=== PATIENT | female | born 1945 | race Caucasian/White ===

== ENCOUNTER 2016-10-07 07:00 | Day surgery (SDC) | payer OTHER ==
[2016-10-07] VITALS (9 sets, daily range): BP systolic 122–146; BP diastolic 70–88; PULSE 80–95; RESP 16–20; TEMP 98.2–98.4; O2SAT 92–96
[~2016-10-07] VITALS: Ht 162.6 cm; Wt 70.5 kg
[2016-10-07] MEDS ORDERED: DICL75TA PO (07:19)
[2016-10-07] MEDS ORDERED: HYDR12.57 PO (07:19)
[2016-10-07] MEDS ORDERED: TEMA30CA PO (07:19)
[2016-10-07] MEDS ORDERED: SYNT88TA PO (07:19)
[2016-10-07] MEDS ORDERED: OMEP40CA2 PO (07:19)
[2016-10-07] MEDS ORDERED: SODIUM CHLOR 0.9% 1000 ML IV SCH (07:30)
[2016-10-07] MEDS ORDERED: SODIUM CHLORIDE 0.9% FLUSH 10 ML FLUSH IV FLUSH PRN ×2 (07:30)
[2016-10-07] MEDS ORDERED: LIDOCAINE 1%/EPINEPHrine 1:100,000 SOLN 20 ML VIAL ONE (07:53)
[2016-10-07] MEDS ORDERED: MIDAZOLAM HCL 5 MG/5 ML VIAL ONE (08:11)
[2016-10-07] MEDS ORDERED: fentaNYL CITRATE 250 MCG/5 ML AMP ONE (08:11)
[2016-10-07] MEDS ORDERED: HYDROmorphone HCL 2 MG TAB PO PRN (11:15)
--- NOTE | 2016-10-07 11:41 | PD.RAD ---
Post CT Procedure Prog Note Pre Procedure Diagnosis: (1) Cancer Post Procedure Diagnosis: (1) Cancer Procedure Date: Oct 07, 2016 Supervising Radiologist: Salvatore Borjas Proceduralist/Assist: RT Sofia(R)(CT) Anesthesia: Conscious Sedation Plan of Activity Patient to Unit: ROPU Patient Condition: Good See PACS Report for procedural detail/treatment Biopsy Imaging Guidance: CT Biopsy Procedure: Liver Specimen: Core Biopsy Salvatore Borjas MD Oct 07, 2016 11:40
--- NOTE | 2016-10-07 12:04 | RADRPT ---
EXAM DATE/TIME: 10/07/2016 08:22 [facility] COMPARISON: No previous studies available for comparison.8 INDICATIONS : Liver lesions. SEDATION TIME: 15 minutes BIOPSY SITE: Right Liver MEDICATION(S): 1.) 1.5 mg midazolam (Versed) IV 2.) 100 mcg fentanyl (Sublimaze) IV DEVICE(S): 1.) 18 gauge Temno core biopsy needle MEDICAL HISTORY : Hypertension. Gastroesophageal reflux disease. Pancreatic mass. SURGICAL HISTORY : None. ENCOUNTER: Initial ACUITY: 1 day PAIN SCORE: 0/10 LOCATION: Right liver A total of three core specimen(s) were obtained and sent to the laboratory for pathologic evaluation. PROCEDURE: 1. CT guided liver biopsy. 2. Conscious sedation with continuous EKG and oximetry monitoring. 3. EKG and oximetry remained stable throughout the procedure. Prior to the procedure informed consent was obtained. Any appropriate prior imaging studies were rev iewed. Using automated exposure control and adjustment of the mA and/or kV according to patient size, radiat ion dose was kept as low as reasonably achievable to obtain optimal diagnostic quality images. The site was prepped in a sterile fashion. Full sterile technique was used, including cap, mask, yumiko rile gloves and gown and a large sterile sheet. Hand hygiene and 2% chlorhexidine and/or betadine/al cohol prep was utilized per protocol for cutaneous antisepsis. The skin and subcutaneous tissues wer e infiltrated with local anesthetic solution. With CT guidance the previously identified target was localized. Biopsy was performed using the presc ribed needle as above. Adequate hemostasis was obtained with compression at the puncture site. Follow-up CT scan reveals no hemorrhage. The patient tolerated the procedure well and there were no complications. The patient was returned to the Radiology Outpatient Unit in stable condition. CONCLUSION: Uncomplicated CT guided biopsy. Salvatore Borjas MD on October 07, 2016 at 12:02 Board Certified Radiologist. This report was verified electronically.
== END 2016-10-07 13:15 | disposition home or self-care (01) ==
LOC: EDSEX → HRIP 07:00 → HRAD 07:00
PROVIDERS: ATTEND Surgery
DX: C78.7 Secondary malignant neoplasm of liver and intrahepatic bile duct (principal); K21.9 Gastro-esophageal reflux disease without esophagitis; I10 Essential (primary) hypertension
CPT/HCPCS: 47000; 77012; 88307; 88341; 88342; J2250; J3010; J7030

== ENCOUNTER → 2016-10-14 | Day surgery (SDC) | payer OTHER ==
[~2016-10-14] MED LIST: ACETAMINOPHEN/HYDROcodone 325 MG/5 MG TAB ONE; BUPIVACAINE/EPINEPHRINE 0.5% PF 30 ML VIAL ONE; DICL75TA PO; HEPARIN SODIUM - IV 10,000 UNITS/10 ML VIAL ONE; HYDR12.57 PO; LACT10SO PO; LACTATED RINGER'S 1000 ML INJ 1,000 ML ONE; LIDOCAINE 1%/EPINEPHrine 1:100,000 SOLN 20 ML VIAL ONE; MIDAZOLAM HCL 2 MG/2 ML VIAL ONE; MORP1TAB24 PO; OMEP40CA2 PO; PROPOFOL 200 MG/20 ML AMP IV ONE; REGL5TAB PO; SODIUM CHLORIDE 0.9% 20 ML VIAL ONE; SYNT88TA PO; TEMA30CA PO; XARE15TA PO; ceFAZolin INJ 1,000 MG VIAL ONE
--- NOTE | 2016-10-14 12:55 | TN ---
cc: FERNIE POWERS M.D., RUBY ANNE E. M.D. DATE OF SURGERY 10/14/2016 PREOPERATIVE DIAGNOSIS Metastatic pancreatic cancer. POSTOPERATIVE DIAGNOSIS Metastatic pancreatic cancer. PROCEDURE Placement left side [id number] under fluoroscopic guidance. ANESTHESIA TIVA SURGEON Dr. Powers INDICATIONS This is an unfortunate 71-year-old female who was found to have widely metastatic pancreatic cancer that was biopsied and confirmed. She has seen Dr. Frankel. She is considering chemotherapy. She is getting a second opinion at the [facility] next week. PROCEDURE The patient taken to the operating room, placed in the supine position. After anesthesia and time out is done, she was given preoperative antibiotics. The left shoulder and neck prepped with Betadine. We anesthetize the area with a quarter percent Marcaine solution, cannulated the subclavian vein without difficulty. The guidewire was advanced under fluoroscopic guidance so it lays in the superior vena cava. The subcutaneous pocket is then made. The catheters is cut to size at 20-1/2 cm. It is connected to the Power Port and secured into place. This was all done under fluoroscopic guidance. The deep layers were closed with 3-0 Vicryl and the skin was closed with a 4-0 Monocryl. Steri-Strips applied. Sterile bandage applied. A stat portable chest x-ray is pending at time of this dictation. MD SIGIFREDO Monteiro/FROYLAN /9:48 AM /12:49 PM
== END | disposition home or self-care (01) ==
LOC: ESDC 07:04
PROVIDERS: ATTEND Surgery
DX: C25.9 Malignant neoplasm of pancreas, unspecified (principal)
CPT/HCPCS: 00532; 36561; 77001; C1788; J0690; J1644; J2250; J3010; J7120

== ENCOUNTER 2016-11-10 07:12 | Observation (INO) | payer MEDICARE, OTHER ==
[~2016-11-10] VITALS: Ht 167.6 cm; Wt 62.0 kg
[2016-11-10] VITALS (11 sets, daily range): BP systolic 106–129; BP diastolic 50–75; PULSE 86–91; RESP 12–19; TEMP 96.6–97.9; O2SAT 87–96
[~2016-11-10 07:12] MED LIST changes: -ACETAMINOPHEN/HYDROcodone 325 MG/5 MG TAB ONE; -BUPIVACAINE/EPINEPHRINE 0.5% PF 30 ML VIAL ONE; -HEPARIN SODIUM - IV 10,000 UNITS/10 ML VIAL ONE; -LACT10SO PO; -LACTATED RINGER'S 1000 ML INJ 1,000 ML ONE; -LIDOCAINE 1%/EPINEPHrine 1:100,000 SOLN 20 ML VIAL ONE; -MIDAZOLAM HCL 2 MG/2 ML VIAL ONE; -MORP1TAB24 PO; -PROPOFOL 200 MG/20 ML AMP IV ONE; -REGL5TAB PO; -SODIUM CHLORIDE 0.9% 20 ML VIAL ONE; -XARE15TA PO; -ceFAZolin INJ 1,000 MG VIAL ONE
[2016-11-10] MEDS ORDERED: ONDANSETRON HCL 4 MG/2 ML VIAL IV PUSH ONE (07:30)
--- NOTE | 2016-11-10 07:42 | PD ---
HPI Chief Complaint: Respiratory Symptoms Time Seen by Provider: 07:26 Travel History International Travel<30 days: No Contact w/Intl Traveler<30days: No Traveled to known affect area: No History of Present Illness HPI 71-year-old female with history of metastatic pancreatic cancer presents with shortness of breath and nausea over the past couple of days. She was diagnosed with a pulmonary embolus on November 06 and started on Xarelto twice a day. Now she is on Xarelto once a day. She didn't have any of her medications yesterday after she had an episode of emesis. She had chemotherapy last on . Dr. Branham is her oncologist. Patient is having difficulty with history so the family member Marizol over the phone helped provide additional history. The patient denies any fever or other complaints other than chronic right sided back pain since her diagnosis. Quality is short of breath. Severity is progressive per patient. History is limited from patient PFSH Past Medical History Cancer: Yes (PANCREATIC CA) Cardiovascular Problems: No Chemotherapy: Yes Diabetes: No Endocrine: No Genitourinary: No Hepatitis: No Hiatal Hernia: Yes Hypertension: Yes Immune Disorder: No Musculoskeletal: Yes (SCOLIOSIS) Neurologic: No Psychiatric: No Reproductive: No Respiratory: Yes (ASTHMA) Thyroid Disease: Yes Influenza Vaccination: No Past Surgical History Abdominal Surgery: Yes AICD: No Cardiac Surgery: No Ear Surgery: No Endocrine Surgery: No Eye Surgery: No Genitourinary Surgery: No Gynecologic Surgery: Yes (HYSTERECTOMY) Joint Replacement: No Oral Surgery: No Pacemaker: No Thoracic Surgery: No Other Surgery: Yes (RIGHT BIG TOE SURGERY) Social History Alcohol Use: No Tobacco Use: No Substance Use: No Allergies-Medications (Allergen,Severity, Reaction): Coded Allergies: No Known Allergies (Unverified , 11/10/16) Reported Meds & Prescriptions Reported Meds & Active Scripts Active Reported Reglan (Metoclopramide HCl) 5 Mg Tab 5 Mg PO QID Lactulose Liq (Lactulose) 10 Gm/15 Ml Soln 15 Ml PO Q12HR Xarelto (Rivaroxaban) 15 Mg Tab 15 Mg PO DAILY Morphine ER (Morphine Sulfate) 15 Mg Tab 15 Mg PO BID Synthroid (Levothyroxine Sodium) 88 Mcg Tab 88 Mcg PO DAILY Omeprazole 40 Mg Cap 40 Mg PO DAILY Review of Systems Except as stated in HPI: all other systems reviewed are Neg Physical Exam Narrative GENERAL: Jaundiced patient SKIN: Warm and dry. HEAD: Normocephalic and atraumatic. EYES: Icteric sclera ENT: No nasal drainage noted. NECK: Supple, trachea midline. CARDIOVASCULAR: Regular rate and rhythm RESPIRATORY: Diminished bilaterally at apices. No accessory muscle use. GASTROINTESTINAL: Abdomen soft, no significant tenderness with palpation NEUROLOGICAL: Awake, moves all extremities, clear speech Data Data Last Documented VS Vital Signs Date Time Temp Pulse Resp B/P Pulse Ox O2 Delivery O2 Flow Rate FiO2 11/10/16 13:05 87 12 126/72 87 Room Air 11/10/16 10:54 3 Orders Electrocardiogram (11/10/16 07:29) Complete Blood Count With Diff (11/10/16 07:29) Comprehensive Metabolic Panel (11/10/16 07:29) Prothrombin Time / Inr (Pt) (11/10/16 07:29) Act Partial Throm Time (Ptt) (11/10/16 07:29) Lactic Acid Sepsis Protocol (11/10/16 07:29) Magnesium (Mg) (11/10/16 07:29) Phosphorus (Po4) (11/10/16 07:29) Ckmb (Isoenzyme) Profile (11/10/16 07:29) Troponin I (11/10/16 07:29) Urinalysis - C+S If Indicated (11/10/16 07:29) Blood Culture (11/10/16 07:29) Chest, Single Ap (11/10/16 07:29) Ecg Monitoring (11/10/16 07:29) Iv Access Insert/Monitor (11/10/16 07:29) Oximetry (11/10/16 07:29) B-Type Natriuretic Peptide (11/10/16 07:29) Ct Pulmonary Angiogram (11/10/16 ) Ondansetron Inj (Zofran Inj) (11/10/16 07:30) Albuterol Concentrated Neb (Albuterol Co (11/10/16 07:45) Metoclopramide Inj (Reglan Inj) (11/10/16 09:15) Iohexol 350 Inj (Omnipaque 350 Inj) (11/10/16 09:54) Resp Home Oxygen Walk Test (11/10/16 ) Admit Order (Ed Use Only) (11/10/16 15:50) Labs Laboratory Tests Test 11/10/16 11/10/16 07:46 07:55 White Blood Count 10.7 TH/MM3 Red Blood Count 3.36 MIL/MM3 Hemoglobin 10.5 GM/DL Hematocrit 32.7 % Mean Corpuscular Volume 97.3 FL Mean Corpuscular Hemoglobin 31.2 PG Mean Corpuscular Hemoglobin 32.1 % Concent Red Cell Distribution Width 15.5 % Platelet Count 219 TH/MM3 Mean Platelet Volume 9.1 FL Neutrophils (%) (Auto) % Lymphocytes (%) (Auto) % Monocytes (%) (Auto) % Eosinophils (%) (Auto) % Basophils (%) (Auto) % Neutrophils # (Auto) TH/MM3 Lymphocytes # (Auto) TH/MM3 Monocytes # (Auto) TH/MM3 Eosinophils # (Auto) TH/MM3 Basophils # (Auto) TH/MM3 CBC Comment AUTO DIFF Differential Total Cells 100 Counted Neutrophils % (Manual) 80 % Band Neutrophils % 4 % Lymphocytes % 12 % Monocytes % 3 % Neutrophils # (Manual) 9.1 TH/MM3 Metamyelocytes 1 % Nucleated Red Blood Cells 2 /100 WBC Differential Comment FINAL DIFF MANUAL Platelet Estimate NORMAL Platelet Morphology Comment NORMAL Target Cells 1+ Stomatocytes 1+ Prothrombin Time 19.6 SEC Prothromb Time International 1.7 RATIO Ratio Activated Partial 30.2 SEC Thromboplast Time Sodium Level 134 MEQ/L Potassium Level 3.8 MEQ/L Chloride Level 97 MEQ/L Carbon Dioxide Level 25.0 MEQ/L Anion Gap 12 MEQ/L Blood Urea Nitrogen 23 MG/DL Creatinine 0.67 MG/DL Estimat Glomerular Filtration 87 ML/MIN Rate Random Glucose 97 MG/DL Calcium Level 9.3 MG/DL Phosphorus Level 2.3 MG/DL Magnesium Level 2.3 MG/DL Total Bilirubin 13.8 MG/DL Aspartate Amino Transf 174 U/L (AST/SGOT) Alanine Aminotransferase 154 U/L (ALT/SGPT) Alkaline Phosphatase 992 U/L Total Creatine Kinase 57 U/L Troponin I 0.02 NG/ML B-Type Natriuretic Peptide 22 PG/ML Total Protein 5.1 GM/DL Albumin 1.7 GM/DL Lactic Acid Level 1.0 mmol/L MDM Medical Decision Making Medical Screen Exam Complete: Yes Emergency Medical Condition: Yes Medical Record Reviewed: Yes (past history confirmed, progressive metastatic pancreatic cancer and oncology note reviewed) Interpretation(s) CBC & BMP Diagram 11/10/16 07:46 Last 24 hours Impressions Chest X-Ray 11/10/16 0729 Signed Impressions: Service Date/Time: November 07:38 - CONCLUSION: No acute cardiopulmonary abnormality is identified. However, the lungs are underinflated and there is atelectasis at the lung bases. Roderick Don MD CT Angiography 11/10/16 0000 Signed Impressions: Service Date/Time: November 09:39 - CONCLUSION: 1. No pulmonary emboli. 2. Small bilateral pleural effusions with passive atelectasis. 3. Diffuse metastatic disease to the liver. 4. Soft tissue fullness at the GE junction with a dilated fluid-filled thoracic esophagus. I cannot exclude a distal esophageal mass. Sonu Gar Jr., MD Given copy of CAT scan for follow-up Differential Diagnosis Anemia, renal failure, effusion, PE, electrolyte abnormality, AK.... Narrative Course Will check blood work, chest x-ray, CT chest and reevaluate. Patient will be given albuterol to see if this improves her symptoms since she states she may have had asthma in the past although this is unclear with records. Concern of recent PE now on lower doses Xarelto which she missed yesterday could also be cause of symptoms Lengthy discussion with daughter (dpsilvina) and and patient at bedside. Offered admission for further workup and care. Patient is preferring to go home with oxygen for comfort and follow with Dr. Branham as an outpatient. Patient is wanting to still try palliative chemotherapy and at this time hold on hospice. Case management assisted with oxygen to go home with after oxygen saturation was 87% with walking. Prescription was written for this. Case management states unable to set up home oxygen without overnight oximetry. Patient cannot go home without oxygen. Patient and family updated and given this and they will proceed with admission Physician Communication Physician Communication dr branham came to see patient at 825 and agrees likely pe, agrees to workup as ordered, if pe give heparin and call her for admit to oncology floor dr branham states ok to go home, please write for home oxygen and will help coordinate home care dr branham updated and agrees to admit under dr servando al given report, agrees to admit Diagnosis Primary Impression: Pleural effusion Additional Impressions: Metastasis from pancreatic cancer Esophageal dilatation Hypoxia Admitting Information Admitting Physician Requests: Admit Clari Rodriges MD November 10, 2016 07:42 Condition: Stable Clari Rodriges MD November 10, 2016 07:42
[2016-11-10] MEDS ORDERED: RESP: ALBUTEROL CONC 2.5 MG/0.5 ML NEB NEB ONE (07:45)
[2016-11-10 08:18] LABS: HEMATOCRIT 32.7 % (35.0-46.0); MEAN CELL VOLUME 97.3 FL (80.0-100.0); MEAN CORPUSCULAR HEMOGLOBIN 31.2 PG (27.0-34.0); MEAN CORPUSCULAR HGB CONC 32.1 % (32.0-36.0); PLATELET COUNT 219 TH/MM3 (150-450); RED BLOOD COUNT 3.36 MIL/MM3 (4.00-5.30); RED CELL DISTRIBUTION WIDTH 15.5 % (11.6-17.2); WHITE BLOOD COUNT 10.7 TH/MM3 (4.0-11.0)
[2016-11-10 08:19] LABS: APTT (PATIENT) 30.2 SEC (24.3-30.1); INTERNATIONAL NORMALIZED RATIO 1.7 RATIO; PROTHROMBIN TIME - PATIENT 19.6 SEC (9.8-11.6)
[2016-11-10 08:20] LABS: HEMO FLAGS AUTO DIFF
[2016-11-10 08:48] LABS: ALKALINE PHOSPHATASE 992 U/L (45-117); ALT (GPT) 154 U/L (10-53); ANION GAP 12 MEQ/L (5-15); AST (GOT) 174 U/L (15-37); BANDS 4 % (0-6); BLOOD UREA NITROGEN 23 MG/DL (7-18); CHLORIDE 97 MEQ/L (98-107); CORRECTED NUCLEATED RBC 2 /100 WBC (0-0); GLOMERULAR FILTRATION RATE 87 ML/MIN (>89); MAGNESIUM 2.3 MG/DL (1.5-2.5); METAMYELOCYTES 1 % (0-1); NEUTROPHIL # MANUAL DIFF 9.1 TH/MM3 (1.8-7.7); POLYS (SEG NEUTROPHILS) 80 % (16-70); POTASSIUM 3.8 MEQ/L (3.5-5.1); SODIUM (NA) 134 MEQ/L (136-145); TOTAL BILIRUBIN ADULT 13.8 MG/DL (0.2-1.0); WBC DIFF SAMPLE 100
[2016-11-10 08:49] LABS: PLATELET ESTIMATE SMEAR NORMAL (NORMAL); PLATELET MORPHOLOGY NORMAL (NORMAL); SCAN/DIFF FINAL DIFF MANUAL; STOMATOCYTES 1+ (NORMAL); TARGET CELLS 1+ (NORMAL)
--- NOTE | 2016-11-10 08:54 | RADRPT ---
EXAM DATE/TIME: 11/10/2016 07:38 [facility] COMPARISON: No previous studies available for comparison. INDICATIONS : Short of breath MEDICAL HISTORY : Hypertension. Gastroesophageal reflux disease. Pancreatic mass. SURGICAL HISTORY : None. ENCOUNTER: Initial ACUITY: 1 day PAIN SCORE: 0/10 LOCATION: Bilateral chest FINDINGS: Portable AP view of the chest demonstrates a normal-sized cardiac silhouette. Left chest wall Infuse- a-Port is present with distal tip in the right atrium. Lungs are underinflated with atelectasis at th e lung bases. No effusion, consolidation, or pneumothorax is identified. The bones and soft tissues d emonstrate no acute finding. CONCLUSION: No acute cardiopulmonary abnormality is identified. However, the lungs are underinflated and there is atelectasis at the lung bases. Roderick Don MD on November 10, 2016 at 8:51 Board Certified Radiologist. This report was verified electronically.
[2016-11-10 08:56] LABS: CREATINE KINASE 57 U/L (26-192)
[2016-11-10] MEDS ORDERED: METOCLOPRAMIDE HCL 10 MG/2 ML VIAL IV PUSH ONE (09:15)
[2016-11-10] MEDS ORDERED: MORP1TAB24 PO (09:30)
[2016-11-10] MEDS ORDERED: XARE15TA PO (09:30)
[2016-11-10] MEDS ORDERED: LACT10SO PO (09:42)
[2016-11-10] MEDS ORDERED: REGL5TAB PO (09:42)
[2016-11-10] MEDS ORDERED: IOHEXOL 350 MG/ML 10 ML VIAL (for RAD DIAG) IV ONE (09:54)
--- NOTE | 2016-11-10 10:26 | RADRPT ---
EXAM DATE/TIME: 11/10/2016 09:39 [facility] COMPARISON: No previous studies available for comparison. INDICATIONS : Short of breath, evaluate for pulmonary embolism IV CONTRAST: 75 cc Omnipaque 350 (iohexol) IV RADIATION DOSE: 9.75 CTDIvol (mGy) MEDICAL HISTORY : Hypertension. Carcinoma, pancreas. Hernia, hiatal.Asthma SURGICAL HISTORY : None. ENCOUNTER: Initial ACUITY: 2 days PAIN SCALE: 5/10 LOCATION: chest TECHNIQUE: Volumetric scanning of the chest was performed using a pulmonary embolism protocol MIP images were re constructed. Using automated exposure control and adjustment of the mA and/or kV according to patien t size, radiation dose was kept as low as reasonably achievable to obtain optimal diagnostic quality images. FINDINGS: PULMONARY ARTERIES: No filling defects are seen in the pulmonary arteries through the segmental level. LUNGS: There is no consolidation or pneumothorax . Mild passive atelectasis adjacent to the effusions. No co ncerning pulmonary nodule is visualized. PLEURAE: Small bilateral pleural effusions. MEDIASTINUM: There is good visualization of the great vessels of the middle mediastinum. No evidence of mediastin al or hilar adenopathy/mass. MUSCULOSKELETAL: Within normal limits for patient age. MISCELLANEOUS: Images to the upper abdomen showed numerous metastatic lesions throughout the liver. There is also so ft tissue fullness involving the GE junction with a dilated fluid-filled thoracic esophagus. CONCLUSION: 1. No pulmonary emboli. 2. Small bilateral pleural effusions with passive atelectasis. 3. Diffuse metastatic disease to the liver. 4. Soft tissue fullness at the GE junction with a dilated fluid-filled thoracic esophagus. I cannot e xclude a distal esophageal mass. Sonu Gar Jr., MD on November 10, 2016 at 10:00 Board Certified Radiologist. This report was verified electronically.
[2016-11-10] MEDS ORDERED: PILL SPLITTER OTHER PRN (16:30)
--- NOTE | 2016-11-10 16:58 | HHI.HP ---
[facility] Service [facility] Primary Care Physician Darion Espinoza MD Admission Diagnosis metastatic pancreatic cancer Diagnoses: Travel History International Travel<30 Days: No Contact w/Intl Traveler <30 Da: No Traveled to Known Affected Are: No Past Family Social History Allergies: Coded Allergies: No Known Allergies (Unverified , 11/10/16) Physical Exam Vital Signs Vital Signs Date Time Temp Pulse Resp B/P Pulse Ox O2 Delivery O2 Flow Rate FiO2 11/10/16 13:05 87 12 126/72 87 Room Air 11/10/16 12:37 87 19 126/72 91 Room Air 11/10/16 10:54 89 12 129/69 96 Nasal Cannula 3 11/10/16 09:27 87 14 106/50 96 Nasal Cannula 3 11/10/16 08:30 96 Nasal Cannula 3.00 11/10/16 07:25 89 16 121/61 96 Nasal Cannula 3.5 11/10/16 07:21 91 14 121/61 89 Physical Exam GENERAL: This is a well-nourished, well-developed patient, in no apparent distress. SKIN: No rashes, ecchymoses or lesions. Cool and dry. HEAD: Atraumatic. Normocephalic. No temporal or scalp tenderness. EYES: Pupils equal round and reactive. Extraocular motions intact. No scleral icterus. No injection or drainage. ENT: Nose without bleeding, purulent drainage or septal hematoma. Throat without erythema, tonsillar hypertrophy or exudate. Uvula midline. Airway patent. NECK: Trachea midline. No JVD or lymphadenopathy. Supple, nontender, no meningeal signs. CARDIOVASCULAR: Regular rate and rhythm without murmurs, gallops, or rubs. RESPIRATORY: Clear to auscultation. Breath sounds equal bilaterally. No wheezes , rales, or rhonchi. GASTROINTESTINAL: Abdomen soft, non-tender, nondistended. No hepato-splenomegaly , or palpable masses. No guarding. MUSCULOSKELETAL: Extremities without clubbing, cyanosis, or edema. No joint tenderness, effusion, or edema noted. No calf tenderness. Negative Homans sign bilaterally. NEUROLOGICAL: Awake and alert. Cranial nerves II through XII intact. Motor and sensory grossly within normal limits. Five out of 5 muscle strength in all muscle groups. Normal speech. Laboratory Laboratory Tests Test 11/10/16 11/10/16 07:46 07:55 White Blood Count 10.7 Red Blood Count 3.36 Hemoglobin 10.5 Hematocrit 32.7 Mean Corpuscular Volume 97.3 Mean Corpuscular Hemoglobin 31.2 Mean Corpuscular Hemoglobin 32.1 Concent Red Cell Distribution Width 15.5 Platelet Count 219 Mean Platelet Volume 9.1 Neutrophils (%) (Auto) Lymphocytes (%) (Auto) Monocytes (%) (Auto) Eosinophils (%) (Auto) Basophils (%) (Auto) Neutrophils # (Auto) Lymphocytes # (Auto) Monocytes # (Auto) Eosinophils # (Auto) Basophils # (Auto) CBC Comment AUTO DIFF Differential Total Cells 100 Counted Neutrophils % (Manual) 80 Band Neutrophils % 4 Lymphocytes % 12 Monocytes % 3 Neutrophils # (Manual) 9.1 Metamyelocytes 1 Nucleated Red Blood Cells 2 Differential Comment FINAL DIFF MANUAL Platelet Estimate NORMAL Platelet Morphology Comment NORMAL Target Cells 1+ Stomatocytes 1+ Prothrombin Time 19.6 Prothromb Time International 1.7 Ratio Activated Partial 30.2 Thromboplast Time Sodium Level 134 Potassium Level 3.8 Chloride Level 97 Carbon Dioxide Level 25.0 Anion Gap 12 Blood Urea Nitrogen 23 Creatinine 0.67 Estimat Glomerular Filtration 87 Rate Random Glucose 97 Calcium Level 9.3 Phosphorus Level 2.3 Magnesium Level 2.3 Total Bilirubin 13.8 Aspartate Amino Transf 174 (AST/SGOT) Alanine Aminotransferase 154 (ALT/SGPT) Alkaline Phosphatase 992 Total Creatine Kinase 57 Troponin I 0.02 B-Type Natriuretic Peptide 22 Total Protein 5.1 Albumin 1.7 Lactic Acid Level 1.0 Date/Time Procedure Status Source Growth 11/10/16 07:55 Aerobic Blood Culture Received Blood Peripheral Pending 11/10/16 07:55 Anaerobic Blood Culture Received Blood Peripheral Pending Result Diagram: 11/10/16 0746 11/10/16 0746 Physician Certification Order for Inpatient Services The services are ordered in accordance with Medicare regulations or non- Medicare payer requirements, as applicable. In the case of services not specified as inpatient-only, they are appropriately provided as inpatient services in accordance with the 2-midnight benchmark. days is the estimated time the patient will need to remain in the hospital, assuming treatment plan goals are met and no additional complications. Korina Ledesma [facility] November 10, 2016 16:58
[2016-11-10] MEDS ORDERED: MORPHINE SULFATE 4 MG/ML INJ IV PUSH PRN ×2 (17:00→20:45)
--- NOTE | 2016-11-10 17:56 | PD.CONS ---
HPI History of Present Illness This is a 71 year old [lady] with pancreatic cancer and metastatic liver disease who was brought to the hospital for dyspnea. Pt noncontributory; hx obtained from , daughter. She was diagnosed with PE 2 weeks ago, started on xarelto bid and then had bleeding and xarelto was subsequently lowered. She wants to go home on oxygen but has been having vomiting, and pain after swallowing. The pain after swallowing started monday morning. Pain is in the epigastric region, worse after swallowing solid food. SHe has been having worsened reflux in the last few days, with burping and coughing black fluid. it is not clear if the black fluid (visualized by provider) is from lungs or GI. She had chemo last week -. She has had diarrhea since her last chemo tx and had diarrhea monday morning and none since. NO blood in stool. ( Amna Asher) PFSH Past Medical History pancreatic cancer Past Surgical History hysterectomy (Amna Asher) Coded Allergies: No Known Allergies (Unverified , 11/10/16) Medications Current Medications Medications (Trade) Dose Ordered Sig/[place] Route PRN Reason Start Time Stop Time Status Last Admin Dose Admin Lactulose (Lactulose Liq) 15 ml Q12HR PO 11/10/16 21:00 Levothyroxine Sodium (Synthroid) 88 mcg DAILY@06 PO 11/11/16 06:00 Morphine Sulfate (Oramorph Sr) 15 mg BID PO 11/10/16 21:00 Rivaroxaban (Xarelto) 15 mg DAILY PO 11/11/16 09:00 Metoclopramide HCl (Reglan) 5 mg QID PO 11/10/16 18:00 Pantoprazole Sodium (Protonix) 40 mg DAILY PO 11/11/16 09:00 Miscellaneous (Pill Splitter) 1 ea UNSCH PRN OTHER SEE LABEL COMMENTS 11/10/16 16:30 Morphine Sulfate 4 mg 4 mg Q4H PRN IV PUSH PAIN 6 TO 10 11/10/16 17:00 11/10/16 17:06 Sodium Chloride (NS 1000 ml Inj) 1,000 ml @ 42 mls/hr [id number] IV 11/10/16 18:00 Family History Last Impressions Chest X-Ray 11/10/16 5099 Signed Impressions: Service Date/Time: November 07:38 - CONCLUSION: No acute cardiopulmonary abnormality is identified. However, the lungs are underinflated and there is atelectasis at the lung bases. Roderick Don MD CT Angiography 11/10/16 0000 Signed Impressions: Service Date/Time: November 09:39 - CONCLUSION: 1. No pulmonary emboli. 2. Small bilateral pleural effusions with passive atelectasis. 3. Diffuse metastatic disease to the liver. 4. Soft tissue fullness at the GE junction with a dilated fluid-filled thoracic esophagus. I cannot exclude a distal esophageal mass. Sonu Gar Jr., MD Social History did not obtain (Amna Asher) Review of Systems ROS pt noncontributory (Amna Asher) GI Exam Vitals I&O Vital Signs Date Time Temp Pulse Resp B/P Pulse Ox O2 Delivery O2 Flow Rate FiO2 11/10/16 16:41 87 16 120/58 94 Nasal Cannula 2 11/10/16 13:05 87 12 126/72 87 Room Air 11/10/16 12:37 87 19 126/72 91 Room Air 11/10/16 10:54 89 12 129/69 96 Nasal Cannula 3 11/10/16 09:27 87 14 106/50 96 Nasal Cannula 3 11/10/16 08:30 96 Nasal Cannula 3.00 11/10/16 07:25 89 16 121/61 96 Nasal Cannula 3.5 11/10/16 07:21 91 14 121/61 89 Imaging Last Impressions Chest X-Ray 11/10/16 0729 Signed Impressions: Service Date/Time: November 07:38 - CONCLUSION: No acute cardiopulmonary abnormality is identified. However, the lungs are underinflated and there is atelectasis at the lung bases. Roderick Don MD CT Angiography 11/10/16 0000 Signed Impressions: Service Date/Time: November 09:39 - CONCLUSION: 1. No pulmonary emboli. 2. Small bilateral pleural effusions with passive atelectasis. 3. Diffuse metastatic disease to the liver. 4. Soft tissue fullness at the GE junction with a dilated fluid-filled thoracic esophagus. I cannot exclude a distal esophageal mass. Sonu Gar Jr., MD Laboratory Test 11/10/16 11/10/16 07:46 07:55 White Blood Count 10.7 TH/MM3 Red Blood Count 3.36 MIL/MM3 Hemoglobin 10.5 GM/DL Hematocrit 32.7 % Mean Corpuscular Volume 97.3 FL Mean Corpuscular Hemoglobin 31.2 PG Mean Corpuscular Hemoglobin 32.1 % Concent Red Cell Distribution Width 15.5 % Platelet Count 219 TH/MM3 Mean Platelet Volume 9.1 FL Neutrophils (%) (Auto) % Lymphocytes (%) (Auto) % Monocytes (%) (Auto) % Eosinophils (%) (Auto) % Basophils (%) (Auto) % Neutrophils # (Auto) TH/MM3 Lymphocytes # (Auto) TH/MM3 Monocytes # (Auto) TH/MM3 Eosinophils # (Auto) TH/MM3 Basophils # (Auto) TH/MM3 CBC Comment AUTO DIFF Differential Total Cells 100 Counted Neutrophils % (Manual) 80 % Band Neutrophils % 4 % Lymphocytes % 12 % Monocytes % 3 % Neutrophils # (Manual) 9.1 TH/MM3 Metamyelocytes 1 % Nucleated Red Blood Cells 2 /100 WBC Differential Comment FINAL DIFF MANUAL Platelet Estimate NORMAL Platelet Morphology Comment NORMAL Target Cells 1+ Stomatocytes 1+ Prothrombin Time 19.6 SEC Prothromb Time International 1.7 RATIO Ratio Activated Partial 30.2 SEC Thromboplast Time Sodium Level 134 MEQ/L Potassium Level 3.8 MEQ/L Chloride Level 97 MEQ/L Carbon Dioxide Level 25.0 MEQ/L Anion Gap 12 MEQ/L Blood Urea Nitrogen 23 MG/DL Creatinine 0.67 MG/DL Estimat Glomerular Filtration 87 ML/MIN Rate Random Glucose 97 MG/DL Calcium Level 9.3 MG/DL Phosphorus Level 2.3 MG/DL Magnesium Level 2.3 MG/DL Total Bilirubin 13.8 MG/DL Aspartate Amino Transf 174 U/L (AST/SGOT) Alanine Aminotransferase 154 U/L (ALT/SGPT) Alkaline Phosphatase 992 U/L Total Creatine Kinase 57 U/L Troponin I 0.02 NG/ML B-Type Natriuretic Peptide 22 PG/ML Total Protein 5.1 GM/DL Albumin 1.7 GM/DL Lactic Acid Level 1.0 mmol/L Date/Time Procedure Status Source Growth 11/10/16 07:55 Aerobic Blood Culture Received Blood Peripheral Pending 11/10/16 07:55 Anaerobic Blood Culture Received Blood Peripheral Pending Physical Examination HEENT: EOMI, normocephalic, + icterus CHEST: Chest is clear to auscultation and percussion. CARDIAC: Regular rate and rhythm with no murmur gallop or rubs. ABDOMEN: Soft, nondistended, nontender; no hepatosplenomegaly; bowel sounds are present in all four quadrants. EXTREMITIES: No clubbing, cyanosis, or edema. SKIN: +jaundice. CALL CENTER SPECIALIST: lethargic. (Amna Asher) Assessment and Plan Plan ASSESSMENT: - pancreatic cancer with liver metastatic dz - 1. No pulmonary emboli. 2. Small bilateral pleural effusions with passive atelectasis. 3. Diffuse metastatic disease to the liver. 4. Soft tissue fullness at the GE junction with a dilated fluid-filled thoracic esophagus. I cannot exclude a distal esophageal mass. - epigastric pain, likely secondary to above. D/w family- family does not with to pursue any work up or intervention at this time, including additional imaging. They wish for pt to go home with oxygen. - elevated LFTs, jaundice, likely secondary to above BILI 13.8, AST 174, ALT 154 , ALP 992 PLAN - no interventions at this time per pt and family request - GI will sign off This pt seen by myself and Dr silva and this note is written on his behalf ( Amna Asher) Physician Comments Seen and examined with JESICA, in the presence of family. ENd stage metastatic pancreatic cancer. No benefit to gi intervention at this time. Daughter in agreement. Will sign off, reconsult as needed. Thank you (Justen Silva MD) Amna Asher November 10, 2016 17:56 Justen Silva MD November 11, 2016 15:04
[2016-11-10] MEDS ORDERED: SODIUM CHLOR 0.9% 1000 ML INJ 1,000 ML IV SCH (18:00)
[2016-11-10] MEDS: METOCLOPRAMIDE HCL 10 MG TAB PO SCH ×2 (18:00→20:22)
--- NOTE | 2016-11-10 18:47 | EKG ---
Date Performed: 11/10/2016 Time Performed: 08:52:28 PTAGE: 71 years EKG: Sinus rhythm WITH SHORT OH INTERVAL LOW QRS VOLTAGE IN EXTREMITY LEADS BORDERLINE ECG NO PREVIOUS TRACING DOCTOR: Salvatore Bradley Interpretating Date/Time 11/10/2016 18:43:36
--- NOTE | 2016-11-10 19:08 | HHI.HP ---
HPI Service [facility] Primary Care Physician Darion Espinoza MD Admission Diagnosis metastatic pancreatic cancer Diagnoses: Chief Complaint: sob, n/v (Korina Ledesma) Travel History International Travel<30 Days: No Contact w/Intl Traveler <30 Da: No Traveled to Known Affected Are: No (Korina Ledesma) History of Present Illness This is an unfortunate 71-year-old female with significant past medical history of metastatic pancreatic cancer with liver involvement, diagnosed September of this year. Patient presented to the emergency room complaining of shortness of breath and nausea and vomiting for the last couple days. Information is obtained from the patient's daughter, patient is unable to provide any details at this time as she is disoriented. is also at bedside. Patient's oncologist is Dr. Dr. Frankel. According to daughter, patient has been seen at [facility], as well as hospitals in [place] and [place] where she has been seeking clinical trials. She was in [place] a couple weeks ago where she became ill and was hospitalized and found with hyperbilirubinemia. She had an MRCP and was found with progression of disease. There was no evidence of obstruction. She was also diagnosed with pulmonary emboli,and was put on Xarelto. Patient came back to [place] where she has continued to follow with Dr. Frankel. She had a port placed and received chemotherapy last week. Her Xarelto was decreased to 15 mg daily because of elevated LFTs. According to the daughter, for the last week patient has had very little to eat. She may be eating one or 2 pieces of food per day. She complains of difficulty keeping food down and epigastric fullness. Yesterday she vomited several times. Daughter describes vomitus as brown in color. She has noted increased abdominal distention and has been constipated since Monday even though she's been taking lactulose daily. Patient has chronic pain since her diagnosis, she is on morphine ER 15 mg by mouth twice a day. She endorses an occasional cough , has been short of breath, no chest pain. There hasn't been any reported fever , no chills. Patient was evaluated in the emergency room, chest x-ray did not reveal any acute findings. CTA was done, no pulmonary emboli. Small bilateral pleural effusions with passive atelectasis were noted. There is diffuse metastatic disease to the liver. Soft tissue fullness at the GE junction with a dilated fluid-filled thoracic esophagus, I cannot conclude a distal esophageal mass. A walk test was done in the emergency room, sats were 87%. According to daughter, yesterday patient was appropriate, oriented 3 however today she's been confused and very restless. According to daughter, patient has been somewhat unsure if she wants to continue with treatment, at this time she is not able to make any decisions that she is disoriented. She is a full code. Daughter states that she is the POA as patient's has underlying dementia. Dr. Varner has discussed plan with patient and her family and at this time they want admission for symptomatic management but otherwise want to limit any invasive procedures including laboratory workup. Patient is admitted for further evaluation and treatment. (Korina Ledesma) Review of Systems ROS Limitations: Poor Historian Constitutional: COMPLAINS OF: Fatigue, Weight loss Gastrointestinal: COMPLAINS OF: Abdominal pain, Constipation, Nausea, Vomiting Integumentary: COMPLAINS OF: Abnormal pigmentation Psychiatric: COMPLAINS OF: Confusion (Korina Ledesma) Past Family Social History Past Medical History Diagnosed with metastatic pancreatic cancer with liver involvement ( September 30, 2016) Ascites and mesenteric implants Constipation Asthma Uterine fibroids GERD Hypertension Arthritis Transaminitis Recent diagnosis of pulmonary emboli, put on Xarelto Past Surgical History CT-guided liver biopsy 10/07/2016 Upper endoscopy and colonoscopy 2013 Plastic surgery Appendectomy Cataract removal 2016 Hysterectomy 1996 Port placement October 2016 Reported Medications Reported Meds & Active Scripts Active Reported Reglan (Metoclopramide HCl) 5 Mg Tab 5 Mg PO QID Lactulose Liq (Lactulose) 10 Gm/15 Ml Soln 15 Ml PO Q12HR Xarelto (Rivaroxaban) 15 Mg Tab 15 Mg PO DAILY Morphine ER (Morphine Sulfate) 15 Mg Tab 15 Mg PO BID Synthroid (Levothyroxine Sodium) 88 Mcg Tab 88 Mcg PO DAILY Omeprazole 40 Mg Cap 40 Mg PO DAILY (Korina Ledesma) Allergies: Coded Allergies: No Known Allergies (Unverified , 11/10/16) Active Ordered Medications Inpatient Medications Albuterol Sulfate (Albuterol Concentrated Neb) 2.5 mg ONCE ONCE NEB Last administered on 11/10/16t 08:27; Start 11/10/16 at 07:45; Stop 11/10/16 at 07:46; Status DC Albuterol/ Ipratropium (Duoneb Neb) 1 ampule Q6HR WHILE AWAKE NEB NEB ; Start 11/10/16 at 20:00 Lactulose (Lactulose Liq) 15 ml Q12HR PO ; Start 11/10/16 at 21:00 Levothyroxine Sodium (Synthroid) 88 mcg DAILY@06 PO ; Start 11/11/16 at 06:00 Metoclopramide HCl (Reglan Inj) 10 mg ONCE ONCE IV PUSH Last administered on 09:27; Start 11/10/16 at 09:15; Stop 11/10/16 at 09:16; Status DC Metoclopramide HCl (Reglan) 5 mg QID PO ; Start 11/10/16 at 18:00 Miscellaneous (Pill Splitter) 1 ea UNSCH PRN OTHER SEE LABEL COMMENTS; Start at 16:30 Morphine Sulfate (Oramorph Sr) 15 mg BID PO ; Start 11/10/16 at 21:00 Morphine Sulfate 4 mg 4 mg Q4H PRN IV PUSH PAIN 6 TO 10 Last administered on 17:06; Start 11/10/16 at 17:00 Ondansetron HCl (Zofran Inj) 4 mg ONCE ONCE IV PUSH Last administered on 08:07; Start 11/10/16 at 07:30; Stop 11/10/16 at 07:37; Status DC Pantoprazole Sodium (Protonix) 40 mg DAILY PO ; Start 11/11/16 at 09:00 Rivaroxaban (Xarelto) 15 mg DAILY PO ; Start 11/11/16 at 09:00 Sodium Chloride (NS 1000 ml Inj) 1,000 ml @ 42 mls/hr [id number] IV ; Start at 18:00 Family History Per previous medical record, father , history of emphysema. Mother at age 93. Social History Patient is , lives with . She has a daughter and a son as well as a stepdaughter. No smoking, no alcohol, no substance abuse. (Korina Ledesma) Physical Exam Vital Signs Vital Signs Date Time Temp Pulse Resp B/P Pulse Ox O2 Delivery O2 Flow Rate FiO2 11/10/16 16:41 87 16 120/58 94 Nasal Cannula 2 11/10/16 13:05 87 12 126/72 87 Room Air 11/10/16 12:37 87 19 126/72 91 Room Air 11/10/16 10:54 89 12 129/69 96 Nasal Cannula 3 11/10/16 09:27 87 14 106/50 96 Nasal Cannula 3 11/10/16 08:30 96 Nasal Cannula 3.00 11/10/16 07:25 89 16 121/61 96 Nasal Cannula 3.5 11/10/16 07:21 91 14 121/61 89 Physical Exam GENERAL: This is a chronically ill-appearing female SKIN: Jaundice, cool dry HEAD: Atraumatic. Normocephalic. No temporal or scalp tenderness. EYES: Pupils equal round and reactive. Extraocular motions intact. Scleral icterus. No injection or drainage. ENT: Nose without bleeding, purulent drainage or septal hematoma. Throat without erythema, tonsillar hypertrophy or exudate. Uvula midline. Airway patent. NECK: Trachea midline. No JVD or lymphadenopathy. Supple, nontender, no meningeal signs. CARDIOVASCULAR: Regular rate and rhythm without murmurs, gallops, or rubs. RESPIRATORY: Breath sounds diminished at bases GASTROINTESTINAL: Abdomen distended, diffuse tenderness. Hypoactive bowel sounds. MUSCULOSKELETAL: Extremities without clubbing, cyanosis. Pretibial edema, pedal pulses +1. No joint tenderness, effusion, or edema noted. No calf tenderness. Negative Homans sign bilaterally. NEUROLOGICAL: Awakes to voice, lethargic. Oriented to self and place, disoriented at times. Following commands. No focal deficits. Laboratory Laboratory Tests Test 11/10/16 11/10/16 07:46 07:55 White Blood Count 10.7 Red Blood Count 3.36 Hemoglobin 10.5 Hematocrit 32.7 Mean Corpuscular Volume 97.3 Mean Corpuscular Hemoglobin 31.2 Mean Corpuscular Hemoglobin 32.1 Concent Red Cell Distribution Width 15.5 Platelet Count 219 Mean Platelet Volume 9.1 Neutrophils (%) (Auto) Lymphocytes (%) (Auto) Monocytes (%) (Auto) Eosinophils (%) (Auto) Basophils (%) (Auto) Neutrophils # (Auto) Lymphocytes # (Auto) Monocytes # (Auto) Eosinophils # (Auto) Basophils # (Auto) CBC Comment AUTO DIFF Differential Total Cells 100 Counted Neutrophils % (Manual) 80 Band Neutrophils % 4 Lymphocytes % 12 Monocytes % 3 Neutrophils # (Manual) 9.1 Metamyelocytes 1 Nucleated Red Blood Cells 2 Differential Comment FINAL DIFF MANUAL Platelet Estimate NORMAL Platelet Morphology Comment NORMAL Target Cells 1+ Stomatocytes 1+ Prothrombin Time 19.6 Prothromb Time International 1.7 Ratio Activated Partial 30.2 Thromboplast Time Sodium Level 134 Potassium Level 3.8 Chloride Level 97 Carbon Dioxide Level 25.0 Anion Gap 12 Blood Urea Nitrogen 23 Creatinine 0.67 Estimat Glomerular Filtration 87 Rate Random Glucose 97 Calcium Level 9.3 Phosphorus Level 2.3 Magnesium Level 2.3 Total Bilirubin 13.8 Aspartate Amino Transf 174 (AST/SGOT) Alanine Aminotransferase 154 (ALT/SGPT) Alkaline Phosphatase 992 Total Creatine Kinase 57 Troponin I 0.02 B-Type Natriuretic Peptide 22 Total Protein 5.1 Albumin 1.7 Lactic Acid Level 1.0 Date/Time Procedure Status Source Growth 11/10/16 07:55 Aerobic Blood Culture Received Blood Peripheral Pending 11/10/16 07:55 Anaerobic Blood Culture Received Blood Peripheral Pending (Korina Ledesma) Result Diagram: 11/10/16 0746 11/10/16 0746 Imaging Last Impressions Chest X-Ray 11/10/16 0729 Signed Impressions: Service Date/Time: November 07:38 - CONCLUSION: No acute cardiopulmonary abnormality is identified. However, the lungs are underinflated and there is atelectasis at the lung bases. Roderick Don MD CT Angiography 11/10/16 0000 Signed Impressions: Service Date/Time: November 09:39 - CONCLUSION: 1. No pulmonary emboli. 2. Small bilateral pleural effusions with passive atelectasis. 3. Diffuse metastatic disease to the liver. 4. Soft tissue fullness at the GE junction with a dilated fluid-filled thoracic esophagus. I cannot exclude a distal esophageal mass. Sonu Gar Jr., MD (Korina Ledesma) Assessment and Plan Problem List: (1) Nausea & vomiting (2) Hypoxia (3) Confusion and disorientation (4) Pleural effusion (5) Metastasis from pancreatic cancer (6) Pulmonary emboli (7) Hypothyroid (8) Jaundice (9) Constipation (10) Elevated LFTs Assessment and Plan Admit to Dr. Varner 71-year-old female with metastatic pancreatic cancer with liver involvement currently on palliative chemotherapy. Also recently diagnosed with pulmonary emboli, on Xarelto. Presented to emergency room with complaint of shortness of breath, nausea, vomiting. Found hypoxic on room air. CTA negative for pulmonary emboli, with findings of soft tissue fullness at GE junction with a dilated fluid-filled thoracic esophagus, possible mass and small bilateral pleural effusions. Metastatic pancreatic cancer, currently on palliative chemotherapy-[facility]olf[facility] Consult Dr. Frankel Hypoxia, recent diagnosis of pulmonary emboli. CTA negative for pulmonary emboli. Bilateral Pleural effusions -Continue with oxygen to keep sats greater than 92 Continue with Xarelto 15 mg by mouth daily DuoNeb's every 6 hours Nausea and vomiting, CT findings of soft tissue fullness a GE junction with dilated fluid-filled thoracic esophagus, possible malignancy History of GERD -Consult GI for evaluation -Anti-emetics when necessary -Cautious hydration Protonix 40 mg IV daily Elevated liver enzymes, secondary to metastatic disease Jaundice Monitor liver enzymes GI following Constipation Continue lactulose 50 mg by mouth every 12 Chronic pain -Resume morphine sulfate 50 by mouth twice a day Morphine 4 mg IV push every 4 when necessary if patient not able to take by mouth Hypothyroid Resume home medications Home medications reviewed, initiated as indicated Continue with Protonix for GI prophylaxis Xarelto for DVT prophylaxis Plan of care has been discussed with the patient and her family, their questions have been answered in detail. Plan of care discussed with attending and registered nurse. Further management of the patient will be dependent on the hospital course End of life care issues have been discussed with the patient's daughter, she is the POA. She has discussed hospice with her mother however patient is not ready to transition and wanted to continue on palliative care chemotherapy. Continue with supportive care, condition guarded. This patient was seen by myself and Dr. Varner, this H&P is written on his behalf (Korina Ledesma) Assessment and Plan pt is seen Y& examined d/w PT's & daughter at bedside overall prognosis is poor d/w Korina winston w above d/w Dr marc , she will be evaluating her later today. will f/u (Raffaele Varner MD) Problem Qualifiers (1) Nausea & vomiting: Qualified Code: R11.2 - Non-intractable vomiting with nausea, unspecified vomiting type (2) Pulmonary emboli: Qualified Code: I27.82 - Other chronic pulmonary embolism without acute cor pulmonale (3) Hypothyroid: Qualified Code: E03.9 - Hypothyroidism, unspecified type (4) Constipation: Qualified Code: K59.00 - Constipation, unspecified constipation type Korina Ledesma November 10, 2016 19:08 Raffaele Varner MD November 10, 2016 19:41
[2016-11-10] MEDS ORDERED: DEXT 5%-NACL 0.9% 1000 ML INJ 1,000 ML IV SCH (19:45)
[2016-11-10] MEDS ORDERED: ONDANSETRON HCL 4 MG/2 ML VIAL IV PUSH PRN (19:45)
[2016-11-10] MEDS ORDERED: PANTOPRAZOLE SODIUM 40 MG VIAL IV PUSH SCH (20:00)
[2016-11-10] MEDS ORDERED: RESP: ALBUTEROL 2.5 MG/IPRATROPIUM 0.5 MG NEB (SCH) NEB (20:00)
--- NOTE | 2016-11-10 20:09 | MB ---
cc: CLARI RODRIGES MD, RUBY ANNE E. M.D. DATE OF CONSULTATION 11/10/16 DATE OF [address] Clari Rodriges CHIEF COMPLAINT [address]. Rodriges requests a consultation for Ms. Herzog regarding metastatic pancreatic cancer. HISTORY OF PRESENT ILLNESS Ms. Herzog is a 79 year old woman, well known patient, with metastatic pancreatic cancer. She was seen initially in the early part of October with diagnosed metastatic disease from liver biopsy. She had a pancreatic tail mass measuring 6 x 4 x 2.5 x 2.8 cm. She was presenting with constipation. In the midst of consultation in [facility] in [place] she was found to have a significant hyperbilirubinemia and jaundice. There was no obstructive lesion. Ultimately, the hyperbilirubinemia was attributed to progression of her liver metastatic disease. She hurriedly returned back to [facility]. She was offered FOLFOX palliative chemotherapy. She is status post first cycle the end of October. She was seen in follow up November 07, 2016. She seems to have recovered. Her hemoglobin is stable at 11.2. Bilirubin was significantly elevated, but clinically she was improving. We had anticipated continued improvement in the ensuing days, particularly the week after her chemotherapy. On the morning of admission, she called page radiophone operator complaining of shortness of breath. The patient and her family were instructed to come into the emergency room where they were seen by Dr. Rodriges. At initial evaluation, she was found to have hypoxia with saturation of 89%. She was complaining of chest pain and shortness of breath. She refers gurgling sound in the lungs. She had some improvement with breathing treatment. Her labs shows interestingly improvement in bilirubin, liver function, AST and ALT, alkaline phosphatase were trending down. However, she was more short of breath. On furthering questioning, she had missed a dose or two of her Xarelto due to GI upset. She had some vomiting overnight. She has anorexia. She had been supported with IV fluid hydration at home, brought by home care. She denies any melena or bright red blood per rectum. There was concern for progression of her pulmonary embolism. A CT angiogram was performed. There was no pulmonary emboli. There was small bilateral pleural effusion with ____ atelectasis, but the findings show soft tissue fullness in the GE junction and a dilated fluid-filled thoracic esophagus. These are new findings. The patient and her family were initially inclined to go home. However, they were unable coordinate delivery of oxygen for her symptoms at home. She was subsequently admitted. She had some vomiting with some coffee grounds. It has become more evident during her evaluation obstruction in the esophagus. She was admitted under the care of Dr. Varner. She was seen by Dr. Silva of gastroenterology. Ultimately decided that she does not want any GI evaluation. They have been contemplating Hospice care. Throughout the day, the patient has become confused and able to relate less and less of her history. Hematology oncology is consulted for the metastatic pancreatic cancer. PAST MEDICAL HISTORY 1. Chronic constipation 2. Metastatic pancreatic cancer 3. 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 Hypertension 5. Hypothyroidism 6. Asthma PAST SURGICAL HISTORY 1. Appendectomy 2. CT guided liver biopsy 3. Cataract surgery 4. Hysterectomy ALLERGIES NO KNOWN DRUG ALLERGIES MEDICATIONS Current, 1. Xarelto 2. Synthroid 3. Lactulose 4. Oramorph 5. Protonix 6. Reglan 7. Morphine sulfate as needed FAMILY HISTORY Mother at age 93. Father at age 69 with emphysema. SOCIAL HISTORY She is , lives with her . She was a college teacher. No tobacco, alcohol or illicit drug use. PHYSICAL EXAMINATION VITAL SIGNS: Temperature 97.9, heart rate 89, respiratory rate 16, blood pressure 121/61, saturation 96% on 3.5 liters nasal cannula. GENERAL: Ms. Herzog is a well-developed jaundiced woman. She is lethargic but arousable. She has difficulty in explaining and relaying her history, although she desires to do so. HEENT: Pupils are round, reactive to light and accommodation. Sclerae are icteric. Oropharynx is dry. NECK: Supple. LUNGS: Clear to auscultation. CARDIOVASCULAR: Normal rate and rhythm. ABDOMEN: Mildly distended. LOWER EXTREMITIES: No edema. Good pulses. LABORATORY DATA Hemoglobin 10.5 which is decreased. Bilirubin of 13.8. Sodium 134. Albumin 1.7. PT and PTT are both prolonged. INR 1.7. ASSESSMENT AND PLAN Ms. Herzog is a 71 year old woman with metastatic pancreatic cancer status post cycle one of FOLFOX chemotherapy. She had tolerated one cycle of chemotherapy with increase in bilirubin, graduate decrease after response. This is encouraging, however, she has more acute problems. The scans were reviewed with Ms. Herzog and her family present at the consultation. We discussed the obstruction in the lower esophagus. In this manner, she would be unable to swallow. She is at risk for aspiration. She has no way in order to be given nutrition. We discussed options to bypass this would be gastroenterology intervention or possible stent placement. For nutrition, she may benefit from PEG tube feeding. After short consideration, Ms. Herzog and her family expressed that she had never wanted to have interventions or be tied up to a machine. They had previous consulted with [facility]. They were certain that they do not want aggressive measures and intervention. They have tried the chemotherapy and were hopeful in doing so, however, given the turn of events and the progression of disease and new symptoms, they are inclined to proceed with Hospice care. Hospice referral was placed and a call was made to the call center to alert them of patient's desire to go to Hospice at the [facility]. Emotional support is provided. Noted consultation by Dr. Silva and patient's refusal. Continue support for comfort measure. I recommend the patient remain nothing by mouth as she would unable to swallow, would induce vomiting. The Xarelto will be held. Despite missing a dose, it seems that there is some effective anticoagulation with an INR Of 1.7. It could also be diminished synthetic function of the liver largely affected by the pancreatic cancer. We will monitor for bleeding. MD ALLY Caldwell/ /7:25 PM /7:41 PM [place]
[2016-11-10] MEDS ORDERED: MORPHINE SULFATE 15 MG CONTROLLED RELEASE TAB PO SCH (21:00)
[2016-11-10] MEDS ORDERED: LORazepam 2 MG/ML VIAL IV PRN (21:00)
[2016-11-10] MEDS ORDERED: LACTULOSE SYRUP 20 GM/30 ML CUP PO SCH (21:00)
[2016-11-11] MEDS ORDERED: LEVOTHYROXINE SODIUM 88 MCG TAB PO SCH (06:00)
[2016-11-11] MEDS ORDERED: RIVAROXABAN 15 MG TAB PO SCH (09:00)
[2016-11-11] MEDS ORDERED: PANTOPRAZOLE SOD 40 MG DELAYED RELEASE TAB PO SCH (09:00)
== END 2016-11-10 22:35 | disposition hospice, inpatient (51) ==
LOC: NEPC 07:12 → INTOOBSV 15:51 → NEDA 15:51 → HOCA 17:54
PROVIDERS: ADMIT Specialist; ATTEND Specialist
DX: C25.2 Malignant neoplasm of tail of pancreas (principal); C78.7 Secondary malignant neoplasm of liver and intrahepatic bile duct; J90 Pleural effusion, not elsewhere classified; K22.2 Esophageal obstruction; R09.02 Hypoxemia; K59.09 Other constipation; R11.2 Nausea with vomiting, unspecified; G89.29 Other chronic pain; E03.9 Hypothyroidism, unspecified; R10.13 Epigastric pain; J45.909 Unspecified asthma, uncomplicated; K21.9 Gastro-esophageal reflux disease without esophagitis; I10 Essential (primary) hypertension; M41.9 Scoliosis, unspecified; M19.90 Unspecified osteoarthritis, unspecified site; Z79.01 Long term (current) use of anticoagulants; Z92.21 Personal history of antineoplastic chemotherapy; Z86.711 Personal history of pulmonary embolism
CPT/HCPCS: 71010; 71275; 80053; 82550; 83605; 83735; 83880; 84100; 84484; 85007; 85027; 85610; 85730; 87040; 93005; 94620; 94664; 96374; 96375; 99285; C9113; G0378; J2270; J2405; J2765; J7042; J7611; Q9967